=== PATIENT | male | born 1965 | race Caucasian/White ===

== ENCOUNTER 2020-02-19 07:44 | Outpatient (CLI) | payer OTHER, SELFPAY ==
--- NOTE | ~2020-02-19 | MR_ITS ---
EXAMINATION: MR brain/brain stem wo con DATE: 02/19/2020 08:41 INDICATION: Tremor TECHNIQUE: Magnetic resonance imaging (MRI) of the brain and brainstem was performed without intraven ous contrast. Sequences included sagittal and axial T1-weighted SE, axial diffusion-weighted FS SE, a xial T2*-weighted GRE, axial T2-weighted FLAIR, and axial T2-weighted FSE. Apparent diffusion coeffic ient (ADC) maps were created. COMPARISON: None. FINDINGS: There are no areas of restricted diffusion to suggest acute infarction. No intracranial hemorrhage or abnormal intracranial mass lesion. There are no intraparenchymal signal abnormalities seen on the ot her pulse sequences. The ventricles are symmetric and normal in size. There are no abnormal extra-axi al fluid collections. Flow voids are seen in the cerebral arteries on the T2-weighted sequences consi stent with their expected patency. Moderate mucosal thickening in the bilateral maxillary and ethmoid sinuses with change of prior bilateral ethmoidectomies. Visualized orbits and soft tissues are unrem arkable. Mild to moderate cervical spondylosis. IMPRESSION: 1. Normal brain. 2. Chronic sinus disease. Reviewed, dictated and finalized at location A.
== END 2020-02-19 07:45 | disposition home or self-care (01) ==
PROVIDERS: PCP Family Medicine; Visit Provider Psychiatry & Neurology Neurology
DX: J32.9 Chronic sinusitis, unspecified (principal)
CPT/HCPCS: 70551

== ENCOUNTER 2020-04-24 09:56 | Emergency (ER) | payer OTHER, SELFPAY ==
--- NOTE | 2020-04-24 10:03 | ED.GENADULT ---
HPI - General Adult General Chief complaint: Upper Respiratory Infection Stated complaint: Sinus infection Time Seen by Provider: 04/24/20 10:20 Source: patient Mode of arrival: ambulatory Limitations: no limitations History of Present Illness HPI narrative: 54-year-old male patient presents to the [facility] with complaints of cold symptoms for the past 3 weeks. Patient states he thought he had a sinus infection was put on an antibiotic by his primary doctor. Patient states he was feeling better while on the antibiotic and then as soon as he got off the antibiotics his symptoms started again. Patient states that he was then get again seen at [facility] and was put on a different antibiotic. Patient states he again felt better when he was on the antibiotic and then when he discontinued the antibiotic he again started having symptoms. Patient states he is having some facial pain, fatigue, nausea and states he feels poison . Denies any fevers. Denies any ear pain, runny nose, coughing. Patient does admit to a sore throat. Patient denies any chest pain, shortness of breath, abdominal pain vomiting or diarrhea. Patient states he has been taking [id number] decongestants for symptoms. Patient states he has not been tested for COVID-19. Related Data Home Medications Medication Instructions Recorded Confirmed Aspir-81 04/24/20 Flonase Allergy Relief 04/24/20 atorvastatin 04/24/20 loratadine mg 04/24/20 naproxen 04/24/20 sertraline mg 04/24/20 sildenafil (pulm.hypertension) 04/24/20 tamsulosin mg PO 04/24/20 Allergies Allergy/AdvReac Type Severity Reaction Status Date / Time azithromycin Allergy Unknown Verified 04/18/13 16:05 erythromycin base Allergy Unknown Verified 12/06/11 09:52 Review of Systems Review of Systems: Narrative: CONSTITUTIONAL: Denies fever, chills, or sweats. EYES: Denies visual changes, redness, or discharge. ENT: Denies rhinorrhea, congestion, positive sore throat, or otalgia. CARDIOVASCULAR: Denies chest pain, palpitations, or edema. RESPIRATORY: Denies cough or dyspnea. GASTROINTESTINAL: Denies abdominal pain, nausea, vomiting, or diarrhea. GENITOURINARY: Denies dysuria or hematuria. SKIN: Denies rash or itching. MUSCULOSKELETAL: Denies back pain, joint pain, or myalgia. NEUROLOGIC: Denies headache, numbness, or weakness. Positive fatigue PSYCHIATRIC: Denies anxiety or depression. [facility] Past Medical History Medical History Allergic rhinitis Anxiety GERD (gastroesophageal reflux disease) Mixed hyperlipidemia Onychomycosis Family History Family History Father Family history of kidney disease Family history of liver disease Patient's father is Mother Patient's mother is in good health, Onset Age: 72 Social History Social History Smoking status: Never smoker Alcohol intake: current Drinks per week: 3 Substance use: never Comments At the time of my signature I agree with nursing past medical history, surgical, social, and family history. There is no relevant family history pertinent to the presenting complaint. Exam Narrative: Exam Narrative: GENERAL: Well-appearing, well-nourished, and in no acute distress. HEAD: Normocephalic, atraumatic. Slight tenderness noted under maxillary sinuses on palpation EYES: PERRLA and EOMI. ENT: Nares clear, no rhinorrhea or epistaxis. Mucous membranes moist. Posterior pharynx with no erythema, tonsil enlargement, exudates or lesions present. Bilateral TMs are clear no erythema or foreign bodies in the canal. NECK: Supple. No lymphadenopathy CHEST: Clear to auscultation. No respiratory distress. HEART: Regular rate and rhythm. No murmur heard. Normal peripheral pulses. ABDOMEN: Soft, nontender, nondistended, normal active bowel sounds. EXTREMITIES:
[2020-04-24 10:06] VITALS: BP 108/84; PULSE 71; RESP 16; TEMP 37; O2SAT 97
== END 2020-04-24 10:37 | disposition home or self-care (01) ==
PROVIDERS: Emergency Provider Nurse Practitioner Family
DX: J06.9 Acute upper respiratory infection, unspecified (principal); Z20.828 Contact with and (suspected) exposure to other viral communicable diseases; F41.9 Anxiety disorder, unspecified; K21.9 Gastro-esophageal reflux disease without esophagitis; E78.2 Mixed hyperlipidemia
CPT/HCPCS: 99213; G0463

== ENCOUNTER 2020-08-18 04:14 | Emergency (ER) | payer OTHER, SELFPAY ==
--- NOTE | ~2020-08-18 | XR_ITS ---
EXAMINATION: XR abdomen/kub 1V INDICATION: Constipation TECHNIQUE: Supine views of the abdomen were obtained on 2 radiographs. COMPARISON: 07/04/2012 FINDINGS: There are no dilated loops of bowel. An expected volume of colonic stool is present. No rush e intraperitoneal gas is identified. Phleboliths are noted in the pelvis. There is mild bilateral hip osteoarthritis. IMPRESSION: 1. Nonspecific bowel gas pattern. Reviewed, dictated and finalized at location A. IFIED SURGICAL TECH/FIRST ASSISTANT
[2020-08-18 04:17] VITALS: BP 124/96; PULSE 78; RESP 16; TEMP 36.1; O2SAT 98
--- NOTE | 2020-08-18 04:53 | ED.GENADULT ---
HPI - General Adult General Chief complaint: Unspecified Stated complaint: severe constipation Time Seen by Provider: 08/18/20 04:42 History of Present Illness HPI narrative: 54 yo male w/ h/o depression, PTSD presents to the ED for constipation. He has not had a bowel movment in 4 days. Sometimes he tries but only a small amount of blood comes out. This is associated with bloating. He did vomit once a few days ago. No abdominal pain, fever Related Data Home Medications Medication Instructions Recorded Confirmed Aspir-81 04/24/20 Flonase Allergy Relief 04/24/20 atorvastatin 04/24/20 loratadine mg 04/24/20 naproxen 04/24/20 sertraline mg 04/24/20 sildenafil (pulm.hypertension) 04/24/20 tamsulosin mg PO 04/24/20 Allergies Allergy/AdvReac Type Severity Reaction Status Date / Time azithromycin Allergy Unknown Verified 04/18/13 16:05 erythromycin base Allergy Unknown Verified 12/06/11 09:52 Review of Systems Review of Systems: All systems reviewed & are unremarkable except as noted in HPI and below Constitutional: Constitutional: Denies fever(s) Cardiovascular: Cardiovascular: Denies chest pain Respiratory: Respiratory: Denies dyspnea Gastrointestinal: Gastrointestinal: Denies abdominal pain, Reports nausea and Reports vomiting Genitourinary: Genitourinary: Denies hematuria, Denies oliguria, Denies dysuria, Denies urinary frequency and Denies urinary hesitancy Neurologic: Denies weakness [facility] Past Medical History Medical History (Updated 08/19/20 @ 00:00 by Background Daemon) Allergic rhinitis Anxiety GERD (gastroesophageal reflux disease) Mixed hyperlipidemia Onychomycosis Family History Family History Father Family history of kidney disease Family history of liver disease Patient's father is Mother Patient's mother is in good health, Onset Age: 72 Social History Social History Smoking status: Never smoker Alcohol intake: current Drinks per week: 3 Substance use: never Exam Const: General: healthy appearing, no acute distress and alert Orientation/consciousness: patient oriented x3 HENMT: Head: normal to inspection Neck: Neck: normal visual inspection and no lymphadenopathy Chest: Chest palpation & inspection: no tenderness Resp: Effort & Inspection: normal respiratory effort Auscultation: clear to auscultation bilaterally, no rales, no rhonchi and no wheezes Cardio: Jugular venous distension: no JVD Rate: regular rate Rhythm: regular rhythm Heart sounds: no murmurs GI: Inspection: non-distended GI Palp: Yes Soft to palpation and No Tenderness to palpation present (GI) Skin: General skin exam: normal color Neuro: General: patient oriented x3 and moves all extremities Speech: normal speech Extrem: General: no edema Psych: Appearance: well kempt Affect: normal affect Course Vital Signs Vital signs: Vital Signs Temperature 36.1 C L 08/18/20 04:17 Pulse Rate 78 08/18/20 04:17 Respiratory Rate 16 08/18/20 04:17 Blood Pressure 124/96 H 08/18/20 04:17 Pulse Oximetry 98 08/18/20 04:17 Temperature 36.3 C L 08/18/20 06:43 Pulse Rate 78 08/18/20 06:43 Respiratory Rate 16 08/18/20 06:43 Blood Pressure 121/79 08/18/20 06:43 Pulse Oximetry 98 08/18/20 06:43 Medical Decision Making Differential Diagnosis Differential Diagnosis: SBO, constipation, diverticulitis, other Medical Records Medical records reviewed: Yes I reviewed the patient's medical records. Vital Signs Vital Signs: Vital Signs Temperature 36.1 C L 08/18/20 04:17 Pulse Rate 78 08/18/20 04:17 Respiratory Rate 16 08/18/20 04:17 Blood Pressure 124/96 H 08/18/20 04:17 Pulse Oximetry 98 08/18/20 04:17 Temperature 36.3 C L 08/18/20 06:43 Pulse Rate 78 08/18/20 06:43 Respiratory Rate 16 08/18/20 06:43
[2020-08-18 05:06] LABS: Basophils Absolute Auto 0.1 K/mm3 (0.0-0.1); Basophils Percent Auto 1.1 % (0.2-1.2); Eosinophils Absolute Auto 0.3 K/mm3 (0-0.3); Eosinophils Percent Auto 3.2 % (0-4.4); Hemoglobin 15.2 g/dL (14.0-18.0); Immature Granulocyte Absolute 0.03 K/mm3 (0.00-0.031); Immature Granulocyte Percent A 0.4 % (0-0.5); Lymphocytes Absolute Auto 2.03 K/mm3 (0.9-3.2); Lymphocytes Percent Auto 24.9 % (18.3-44.2); Mean Corpuscular HGB Conc 34.5 g/dl (32-36); Mean Corpuscular Hemoglobin 29.7 pg (26-34); Mean Corpuscular Volume 86.1 fl (80-100); Mean Platelet Volume 10.9 fl (7.4-10.4); Monocytes Absolute Auto 0.9 K/mm3 (0.1-0.6); Monocytes Percent Auto 10.5 % (2.6-8.5); Neutrophils Absolute Auto 4.9 K/mm3 (1.3-6.7); Neutrophils Percent Auto 59.9 % (45.5-73.1); Platelet Count Result 208 k/mm3 (150-375); Red Blood Count 5.11 M/mm3 (4.6-6.20); Red Cell Distribution Width 12.7 % (11.5-14.5); White Blood Count 8.2 K/mm3 (4.5-10.0)
[2020-08-18 05:21] LABS: Alanine Aminotransferase 29 U/L (4-50); Albumin Level 4.3 g/dL (3.5-5.1); Alkaline Phosphatase 65 U/L (38-126); Anion Gap 8 mmol/L (8-16); Aspartate Amino Transferase 27 U/L (17-59); Bilirubin,Total 0.9 mg/dL (0.2-1.3); Blood Urea Nitrogen 23 mg/dL (9-20); Calcium 9.6 mg/dL (8.4-10.2); Carbon Dioxide 29 mmol/L (22-30); Chloride 103 mmol/L (98-107); Estimated CRCL calculation 90 ml/min; Estimated Glomerular Filt Rate > 60; Glucose 103 mg/dL (75-110); Potassium 3.9 mmol/L (3.4-5.0); Sodium 140 mmol/L (137-145)
[2020-08-18] MEDS: MAGNESIUM CITRATE 300 ML BTL PO (06:40)
[2020-08-18 06:43] VITALS: BP 121/79; PULSE 78; RESP 16; TEMP 36.3; O2SAT 98
== END 2020-08-18 06:44 | disposition home or self-care (01) ==
PROVIDERS: Emergency Provider Emergency Medicine
DX: K59.00 Constipation, unspecified (principal); F32.9 Major depressive disorder, single episode, unspecified; F43.10 Post-traumatic stress disorder, unspecified; F41.9 Anxiety disorder, unspecified; K21.9 Gastro-esophageal reflux disease without esophagitis; E78.2 Mixed hyperlipidemia
CPT/HCPCS: 36415; 74018; 80053; 85025; 99283; A9270

== ENCOUNTER 2020-09-08 03:31 | Emergency (ER) | payer OTHER, SELFPAY ==
[2020-09-08] VITALS (10 sets, daily range): BP systolic 95–130; BP diastolic 72–95; PULSE 56–67; RESP 17–25; TEMP 36.4–36.6; O2SAT 96–100
--- NOTE | ~2020-09-08 | CT_ITS ---
EXAMINATION: CT abdomen pelvis w con DATE: 09/08/2020 06:08 INDICATION: Abdomen pain. TECHNIQUE: Computed tomography (CT) of the abdomen and pelvis was performed with 100 cc Omnipaque 350 intravenous contrast. The dose-length product was 1032.75 mGy-cm. Automated exposure control and ite rative reconstruction technique were employed. Automated exposure control and iterative reconstructio n technique were employed. COMPARISON: CT dated 09/09/2013. FINDINGS: Lung bases are unremarkable. Heart size normal. No significant pleural or pericardial effus ion. Small subcentimeter hypodensities of the liver, likely benign cysts. The spleen, pancreas, adrenal gl ands and kidneys are unremarkable. Nonobstructive bowel gas pattern. Normal appendix. No lymphadenopa thy. No free air or free fluid. Mild hepatic steatosis ptosis. There is atherosclerosis. Mild lumbar spondylosis. No acute osseous abnormality. IMPRESSION: 1. No acute abdominal abnormality. Reviewed, dictated and finalized at location A. NG AND QUARRYING MACHINERY REPAIRER
--- NOTE | ~2020-09-08 | XR_ITS ---
EXAMINATION: XR chest 1V portable 09/08/2020 04:44 INDICATION: Cough and shortness of breath PROCEDURE: AP portable chest COMPARISON: Comparison to multiple prior studies sequentially, with oldest reviewed study dated 02/25. FINDINGS: The lungs are clear. The cardiomediastinal silhouette is within normal limits. There are no pleural effusions. There is no pneumothorax suspected. IMPRESSION: 1: NO ACUTE CARDIOPULMONARY DISEASE. Reviewed, dictated and finalized at location A. PER SORTER
--- NOTE | 2020-09-08 03:59 | ECG_ITS ---
Measurements Intervals [place] Rate: 53 P: 40 NE: 234 QRS: 42 QRSD: 98 T: 37 QT: 404 QTc: 382 Interpretive Statements SINUS BRADYCARDIA WITH FIRST DEGREE AV BLOCK ABNORMAL ECG Electronically Signed On 09-08-2020 7:27:12 VIDEO GAME TESTER by Francisco Hylton D.O.
--- NOTE | 2020-09-08 04:04 | ED.GENADULT ---
HPI - General Adult General Chief complaint: Upper Respiratory Infection Stated complaint: shortness of breath Time Seen by Provider: 09/08/20 03:37 Source: RN notes reviewed History of Present Illness HPI narrative: Patient presents emergency department from home for shortness of breath. States that symptoms have been progressively worsening over the past 2 weeks states is associated with a nonproductive cough. He denies any fevers or chills chest pain abdominal pain nausea vomiting or other symptoms. States he does feel bloated in the abdomen Related Data Home Medications Medication Instructions Recorded Confirmed Aspir-81 04/24/20 Flonase Allergy Relief 04/24/20 atorvastatin 04/24/20 loratadine mg 04/24/20 naproxen 04/24/20 sertraline mg 04/24/20 sildenafil (pulm.hypertension) 04/24/20 tamsulosin mg PO 04/24/20 Allergies Allergy/AdvReac Type Severity Reaction Status Date / Time azithromycin Allergy Intermediate Headache Verified 09/08/20 03:33 erythromycin base Allergy Intermediate Headache Verified 09/08/20 03:33 Review of Systems Review of Systems: Narrative: Gen.: Denies fevers or chills Eyes: Denies eye pain or visual change ENT: Denies congestion Respiratory: See HPI CV: Denies chest pain or palpitations GI: Denies abdominal pain nausea, emesis or diarrhea denies burning, urgency, frequency or hematuria Musculoskeletal: Denies back pain or muscle pain Neuro: Denies numbness, tingling, weakness or focal weakness Skin: Denies rash Except as documented, all other systems reviewed and negative [facility] Past Medical History Medical History (Updated 09/08/20 @ 06:44 by Fran Pedroza DO) Allergic rhinitis Anxiety GERD (gastroesophageal reflux disease) Mixed hyperlipidemia Onychomycosis Family History Family History Father Family history of kidney disease Family history of liver disease Patient's father is Mother Patient's mother is in good health, Onset Age: 72 Social History Social History Smoking status: Never smoker Alcohol intake: current Drinks per week: 3 Substance use: never Exam Narrative: Exam Narrative: APPEARANCE: No acute distress, nontoxic, resting in bed EYES: EOMI HEENT: Normocephalic, atraumatic, OMM RESPIRATORY: No respiratory distress Clear to auscultation bilaterally with no rhonchi wheezing or rales. CARDIOVASCULAR: Regular rate and rhythm without murmurs rubs or gallops. ABDOMINAL: Soft, nontender, nondistended, no rebound or guarding MUSCULOSKELETAl: Moves all extremities. No clubbing, cyanosis or edema. NEURO: Awake and alert. Following commands, speech normal, no focal deficits SKIN:: Warm, dry. No rashes lesions or abrasions PSYCHIATRIC: Normal affect/mood, Course Course Emergency Course: Discussed with patient results of workup and diagnosis. Discussed need for follow-up with primary care, proper use of medication, and reasons to return to the emergency department. Patient understands and agrees to current treatment plan Vital Signs Vital signs: Vital Signs Temperature 97.9 F 09/08/20 03:37 Pulse Rate 59 L 09/08/20 03:37 Respiratory Rate 18 09/08/20 03:37 Blood Pressure 95/72 L 09/08/20 03:37 Pulse Oximetry 100 09/08/20 03:37 Temperature 97.5 F L 09/08/20 05:20 Pulse Rate 65 09/08/20 05:20 Respiratory Rate 17 09/08/20 05:20 Blood Pressure 102/75 09/08/20 05:20 Pulse Oximetry 100 09/08/20 05:20 Medical Decision Making Vital Signs Vital Signs: Vital Signs Temperature 97.9 F 09/08/20 03:37 Pulse Rate 59 L 09/08/20 03:37 Respiratory Rate 18 09/08/20 03:37 Blood Pressure 95/72 L 09/08/20 03:37 Pulse Oximetry 100 09/08/20 03:37 Temperature 97.5 F L 09/08/20 05:20 Pulse Rate 65 09/08/20 05:20 Respiratory Rate 17 09/08/20 05:20 Blood Pressure 102/
[2020-09-08] MEDS: SODIUM CHLORIDE 0.9% IV 1,000 ML 999 ML IV CONT (04:14)
[2020-09-08 04:22] LABS: Basophils Absolute Auto 0.1 K/mm3 (0.0-0.1); Basophils Percent Auto 1.4 % (0.2-1.2); Eosinophils Absolute Auto 0.3 K/mm3 (0-0.3); Eosinophils Percent Auto 4.4 % (0-4.4); Hematocrit 42.8 % (42.0-52.0); Immature Granulocyte Absolute 0.02 K/mm3 (0.00-0.031); Immature Granulocyte Percent A 0.3 % (0-0.5); Lymphocytes Absolute Auto 2.21 K/mm3 (0.9-3.2); Lymphocytes Percent Auto 30.5 % (18.3-44.2); Mean Corpuscular Hemoglobin 29.4 pg (26-34); Mean Corpuscular Volume 83.9 fl (80-100); Mean Platelet Volume 11.7 fl (7.4-10.4); Monocytes Absolute Auto 0.8 K/mm3 (0.1-0.6); Monocytes Percent Auto 10.8 % (2.6-8.5); Neutrophils Absolute Auto 3.8 K/mm3 (1.3-6.7); Neutrophils Percent Auto 52.6 % (45.5-73.1); Platelet Count Result 220 k/mm3 (150-375); Red Cell Distribution Width 12.7 % (11.5-14.5); White Blood Count 7.2 K/mm3 (4.5-10.0)
[2020-09-08 04:32] LABS: Prothrombin Time 13.8 Seconds (11.1-14.7)
[2020-09-08 04:33] LABS: Partial Thromboplastin Time 30.7 SECONDS (22.3-36.8)
[2020-09-08 04:36] LABS: Alanine Aminotransferase 21 U/L (4-50); Albumin Level 4.2 g/dL (3.5-5.1); Alkaline Phosphatase 53 U/L (38-126); Anion Gap 9 mmol/L (8-16); Aspartate Amino Transferase 23 U/L (17-59); Bilirubin,Total 0.5 mg/dL (0.2-1.3); Blood Urea Nitrogen 17 mg/dL (9-20); Calcium 9.2 mg/dL (8.4-10.2); Carbon Dioxide 27 mmol/L (22-30); Chloride 104 mmol/L (98-107); Estimated CRCL calculation 89 ml/min; Estimated Glomerular Filt Rate > 60; Glucose 100 mg/dL (75-110); Potassium 3.8 mmol/L (3.4-5.0); Sodium 140 mmol/L (137-145)
[2020-09-08 04:40] LABS: D Dimer 0.27 ug/mL (<0.48)
[2020-09-08 04:48] LABS: NT Pro B Type Natriuretic Pept 57 PG/ML (5-100); Troponin I < 0.012 ng/mL (0.000-0.034)
[2020-09-08] MEDS: ALBUTEROL SULFATE (*SP) AEROSOL 1 PUFF 2 PUFF INHALATION (05:07)
[2020-09-08 16:41] LABS: SARS-CoV-2 RNA PCR Negative
== END 2020-09-08 07:26 | disposition home or self-care (01) ==
PROVIDERS: Emergency Provider Emergency Medicine
DX: R06.02 Shortness of breath (principal); Z20.828 Contact with and (suspected) exposure to other viral communicable diseases; F41.9 Anxiety disorder, unspecified; K21.9 Gastro-esophageal reflux disease without esophagitis; E78.2 Mixed hyperlipidemia; R00.1 Bradycardia, unspecified; I44.0 Atrioventricular block, first degree; Z79.82 Long term (current) use of aspirin
CPT/HCPCS: 36415; 71045; 74177; 80053; 83880; 84484; 85025; 85380; 85610; 85730; 87635; 93005; 94640; 96360; 99284; A9270; C9803; J7030; Q9967; U0003

== ENCOUNTER 2021-07-21 19:36 | Emergency (ER) | payer OTHER, SELFPAY ==
--- NOTE | ~2021-07-21 | XR_ITS ---
EXAMINATION: XR chest 2V EXAM DATE: 07/21/2021 20:00 INDICATION: Shortness of breath, N/V, abdominal pain for 2 days. TECHNIQUE: Frontal and lateral projections of the chest obtained and reviewed. Comparison is made to prior examination from 09/08/2020. FINDINGS: The lungs are clear. There are no pleural effusions. The cardiomediastinal silhouette is within normal limits. There is no pneumothorax suspected. The bones and soft tissues are unremarkab le. IMPRESSION: No acute cardiopulmonary findings. Reviewed, dictated and finalized at location A.
[2021-07-21 19:41] VITALS: BP 130/90; PULSE 85; RESP 14; TEMP 37.1; O2SAT 97
--- NOTE | 2021-07-21 19:44 | ECG_ITS ---
Measurements Intervals [place] Rate: 78 P: 61 IA: 203 QRS: 34 QRSD: 105 T: 44 QT: 370 QTc: 423 Interpretive Statements SINUS RHYTHM BORDERLINE AV CONDUCTION DELAY MINIMAL Q WAVES- ANTEROLAT/INF LEADS BASELINE ARTIFACT- I, III, AVR, AVL BORDERLINE ECG Electronically Signed On 07-22-2021 6:15:09 CDT by Francisco Hylton D.O.
[2021-07-21 19:58] LABS: Basophils Absolute Auto 0.1 K/mm3 (0.0-0.1); Basophils Percent Auto 1.3 % (0.2-1.2); Eosinophils Absolute Auto 0.3 K/mm3 (0-0.3); Eosinophils Percent Auto 2.8 % (0-4.4); Hemoglobin 16.8 g/dL (14.0-18.0); Immature Granulocyte Absolute 0.04 K/mm3 (0.00-0.031); Immature Granulocyte Percent A 0.4 % (0-0.5); Lymphocytes Percent Auto 25.5 % (18.3-44.2); Mean Corpuscular Hemoglobin 30.2 pg (26-34); Mean Corpuscular Volume 86.3 fl (80-100); Mean Platelet Volume 10.9 fl (7.4-10.4); Monocytes Absolute Auto 0.8 K/mm3 (0.1-0.6); Monocytes Percent Auto 8.5 % (2.6-8.5); Neutrophils Percent Auto 61.5 % (45.5-73.1); Platelet Count Result 240 k/mm3 (150-375); Red Blood Count 5.56 M/mm3 (4.6-6.20); Red Cell Distribution Width 12.6 % (11.5-14.5); White Blood Count 9.8 K/mm3 (4.5-10.0)
[2021-07-21 20:08] LABS: Anion Gap 10 mmol/L (8-16); Blood Urea Nitrogen 13 mg/dL (9-20); Calcium 9.7 mg/dL (8.4-10.2); Carbon Dioxide 25 mmol/L (22-30); Chloride 105 mmol/L (98-107); Estimated CRCL calculation 89 ml/min; Estimated Glomerular Filt Rate > 60; Glucose 101 mg/dL (65-110); Lipase 85 U/L (23-300); Potassium 4.2 mmol/L (3.4-5.0); Sodium 140 mmol/L (137-145)
[2021-07-21 20:20] LABS: Add Urine Microscopic? NO; Appearance Urine Clear (Clear); Bilirubin Urine Negative (Negative); Blood Urine Negative (Negative); Color Urine Yellow (Yellow); Glucose Urine UA Negative (Negative); Ketones Urine Negative (Negative); Leukocyte Esterase Ur Negative LEU/UL (Negative); Nitrate Urine Negative (Negative); Protein Urine Negative (Negative); Specific Grav Ur 1.012 (1.001-1.035); Urobilinogen Urine Negative mg/dL (<2.0)
[2021-07-21] MEDS: SODIUM CHLORIDE 0.9% IV 1,000 ML 999 ML IV CONT (21:31)
[2021-07-21] MEDS: ONDANSETRON INJ 4 MG/2 ML VIAL IV PUSH (21:32)
--- NOTE | 2021-07-21 22:01 | ED.NAVMDI ---
HPI - Nausea/Vomiting/Diarrhea General Chief complaint: Nausea/Vomiting/Diarrhea Stated complaint: withdrawal symptoms Time Seen by Provider: 07/21/21 20:56 History of Present Illness HPI Narrative: Patient presents with nausea vomiting and soft stools. Patient reports his symptoms started approximately 5 days ago that was related to his medication which she discontinued. His nausea and vomiting worsen so he came to the ER for evaluation. Patient presents at soft stools however his stools are improving. Denies any focal abdominal pain denies lightheadedness or fevers denies any known sick contacts, recent antibiotics. Patient is concerned symptoms may related to discontinuing his medication but Related Data Home Medications Medication Instructions Recorded Confirmed Aspir-81 04/24/20 Flonase Allergy Relief 04/24/20 atorvastatin 04/24/20 loratadine mg 04/24/20 naproxen 04/24/20 sertraline mg 04/24/20 sildenafil (pulm.hypertension) 04/24/20 tamsulosin mg PO 04/24/20 Allergies Allergy/AdvReac Type Severity Reaction Status Date / Time azithromycin Allergy Intermediate Headache Verified 09/08/20 03:33 erythromycin base Allergy Intermediate Headache Verified 09/08/20 03:33 Review of Systems Review of Systems: CONSTITUTIONAL: Denies fever, chills, or sweats. EYES: Denies visual changes, redness, or discharge. ENT: Denies rhinorrhea, congestion, sore throat, or otalgia. CARDIOVASCULAR: Denies chest pain, palpitations, or edema. RESPIRATORY: Denies cough or dyspnea. GASTROINTESTINAL: Denies abdominal pain. GENITOURINARY: Denies dysuria or hematuria. SKIN: Denies rash or itching. MUSCULOSKELETAL: Denies back pain, joint pain, or myalgia. NEUROLOGIC: Denies headache, numbness, dizziness, or weakness. PSYCHIATRIC: Denies anxiety or depression. All systems reviewed & are unremarkable except as noted in HPI and below PMFSH Past Medical History Medical History (Updated 07/22/21 @ 00:00 by Hank Jacobsen) Allergic rhinitis Anxiety GERD (gastroesophageal reflux disease) Mixed hyperlipidemia Onychomycosis Family History Family History Father Family history of kidney disease Family history of liver disease Patient's father is Mother Patient's mother is in good health, Onset Age: 72 Social History Social History Smoking status: Never smoker Alcohol intake: current Drinks per week: 3 Substance use: never Exam Narrative: GENERAL: Well-appearing, well-nourished, and in no acute distress. HEAD: Normocephalic, atraumatic. EYES: PERRLA and EOMI. ENT: Nares clear, no rhinorrhea or epistaxis. Mucous membranes moist. NECK: Supple. No masses. No JVD CHEST: Clear to auscultation. No respiratory distress. No wheezes rales or rhonchi HEART: Regular rate and rhythm. No murmur heard. Normal peripheral pulses. ABDOMEN: Soft, nontender, nondistended, normal active bowel sounds. EXTREMITIES: Normal range of motion. No edema. SKIN: Warm, dry, no rash. NEURO: No focal deficits. Alert and oriented x3. PSYCH: Normal mood and affect. Course Vital Signs Vital signs: Vital Signs Temperature 37.1 C 07/21/21 19:41 Pulse Rate 85 07/21/21 19:41 Respiratory Rate 14 07/21/21 19:41 Blood Pressure 130/90 07/21/21 19:41 Pulse Oximetry 97 07/21/21 19:41 Temperature 37.1 C 07/21/21 19:41 Pulse Rate 78 07/21/21 22:40 Respiratory Rate 14 07/21/21 22:40 Blood Pressure 130/74 07/21/21 22:40 Pulse Oximetry 97 07/21/21 22:40 MDM - Nausea/Vomiting/Diarrhea MDM Narrative Medical decision making narrative: H&P as above, vss, pt looks clinically well, exam with nonacute abdomen, labs clinically unremarkable,additional labs/img considered, symptomatic relief available as needed, on reevaluation pt continues to looks clinically well. Suspect viral process, dns sm
[2021-07-21 22:40] VITALS: BP 130/74; PULSE 78; RESP 14; O2SAT 97
== END 2021-07-21 22:40 | disposition home or self-care (01) ==
PROVIDERS: Emergency Medicine; Emergency Provider Emergency Medicine
DX: R11.2 Nausea with vomiting, unspecified (principal); R19.7 Diarrhea, unspecified; Z79.82 Long term (current) use of aspirin; Z79.1 Long term (current) use of non-steroidal anti-inflammatories (NSAID)
CPT/HCPCS: 36415; 71046; 80048; 81003; 83690; 85025; 93005; 96361; 96374; 99284; J2405; J7030

== ENCOUNTER 2021-11-19 11:37 | Emergency (ER) | payer OTHER, SELFPAY ==
--- NOTE | ~2021-11-19 | XR_ITS ---
EXAMINATION: XR hand RT 2V DATE: 11/19/2021 11:59 INDICATION: Right hand swelling and erythema. TECHNIQUE: 2 views of right hand were obtained. COMPARISON: None. FINDINGS: Bone alignment is normal. No fracture. Joint spaces are well maintained. IMPRESSION: 1. Normal right hand. Reviewed, dictated and finalized at location E. ORATE LAW SPECIALIST IMPRESSION: 1. Normal right hand.
[2021-11-19 11:40] VITALS: BP 128/81; PULSE 90; RESP 18; TEMP 36.3; O2SAT 95
--- NOTE | 2021-11-19 11:53 | ED.EXTPRO ---
HPI - Extremity Problem General Chief complaint: Extremity Problem,Nontraumatic Stated complaint: Hand pain Time Seen by Provider: 11/19/21 11:44 Source: patient History of Present Illness HPI Narrative: Patient presents with pain to his right hand. Patient ports he had symptoms for the past 3 days getting progressively worse. Reports his pain is achy, constant, worse with trying to use his hand, no radiation. Associated with redness swelling and warmth. Denies any trauma denies any fevers denies any focal numbness or weakness. Related Data Home Medications Medication Instructions Recorded Confirmed Aspir-81 04/24/20 Flonase Allergy Relief 04/24/20 atorvastatin 04/24/20 loratadine mg 04/24/20 naproxen 04/24/20 sertraline mg 04/24/20 sildenafil (pulm.hypertension) 04/24/20 tamsulosin mg PO 04/24/20 Allergies Allergy/AdvReac Type Severity Reaction Status Date / Time azithromycin Allergy Intermediate Headache Verified 11/19/21 11:42 erythromycin base Allergy Intermediate Headache Verified 11/19/21 11:42 Review of Systems Review of Systems: CONSTITUTIONAL: Denies fever, chills, or sweats. EYES: Denies visual changes, redness, or discharge. ENT: Denies rhinorrhea, congestion, sore throat, or otalgia. CARDIOVASCULAR: Denies chest pain, palpitations, or edema. RESPIRATORY: Denies cough or dyspnea. GASTROINTESTINAL: Denies abdominal pain, nausea, vomiting, or diarrhea. GENITOURINARY: Denies dysuria or hematuria. SKIN: Denies rash or itching. MUSCULOSKELETAL: Denies back pain, joint pain, or myalgia. NEUROLOGIC: Denies headache, numbness, dizziness, or weakness. PSYCHIATRIC: Denies anxiety or depression. All systems reviewed & are unremarkable except as noted in HPI and below PMFSH Past Medical History Medical History (Updated 11/19/21 @ 11:56 by Christiano Gutierrez MD) Allergic rhinitis Anxiety GERD (gastroesophageal reflux disease) Mixed hyperlipidemia Onychomycosis Family History Family History Father Family history of kidney disease Family history of liver disease Patient's father is Mother Patient's mother is in good health, Onset Age: 72 Social History Social History Smoking status: Never smoker Alcohol intake: current Drinks per week: 3 Substance use: never Exam Narrative: GENERAL: Well-appearing, well-nourished, and in no acute distress. HEAD: Normocephalic, atraumatic. EYES: PERRLA and EOMI. ENT: Nares clear, no rhinorrhea or epistaxis. Mucous membranes moist. NECK: Supple. No masses. No JVD EXTREMITIES: Mild erythema warmth and edema most noted on the hyperthenar eminence of the hand no focal fluid collections no obvious open or draining wounds SKIN: Warm, dry, no rash. NEURO: No focal deficits. Alert and oriented x3. PSYCH: Normal mood and affect. Course Reevaluation(s) Reevaluation #1: Results reviewed with patient. Patient comfortable outpatient plan. Date: 11/19/21 Time: 12:17 Vital Signs Vital signs: Vital Signs Temperature 36.3 C L 11/19/21 11:40 Pulse Rate 90 11/19/21 11:40 Respiratory Rate 18 11/19/21 11:40 Blood Pressure 128/81 11/19/21 11:40 Pulse Oximetry 95 11/19/21 11:40 Temperature 36.3 C L 11/19/21 11:40 Pulse Rate 90 11/19/21 11:40 Respiratory Rate 18 11/19/21 11:40 Blood Pressure 128/81 11/19/21 11:40 Pulse Oximetry 95 11/19/21 11:40 MDM - Extremity (Nontraumatic) MDM Narrative Medical decision making narrative: H&P as above, vss, pt looks clinically well, exam warmth erythema and edema to the hand no tenderness with palpation on the flexor tendons of the digits no Knievel signs, imaging clinically unremarkable, additional labs/img considered, symptomatic relief available as needed, on reevaluation pt continues to looks clinically well. Suspect developing cellulitis, dns abscess, flexor ten
== END 2021-11-19 12:25 | disposition home or self-care (01) ==
LOC: ANHED 12:06
PROVIDERS: Emergency Provider Emergency Medicine
DX: L03.113 Cellulitis of right upper limb (principal); K21.9 Gastro-esophageal reflux disease without esophagitis; E78.2 Mixed hyperlipidemia; Z79.82 Long term (current) use of aspirin
CPT/HCPCS: 73120; 99283

== ENCOUNTER 2023-09-06 07:56 | Emergency (ER) | payer OTHER, SELFPAY ==
[2023-09-06] VITALS (12 sets, daily range): BP systolic 99–115; BP diastolic 75–85; PULSE 65–73; RESP 15–21; TEMP 36.6; O2SAT 93–99
--- NOTE | ~2023-09-06 | XR_ITS ---
EXAMINATION: XR chest 2V DATE: 09/06/2023 08:20 INDICATION: Shortness of breath. TECHNIQUE: Frontal and lateral views of the chest were obtained. COMPARISON: Chest 2 views 07/21/21, CT abdomen and pelvis 09/08/2020 FINDINGS: There is stable mild scarring at left lung apex. There is no pneumonia, pleural effusion, o r pneumothorax. The heart size is normal. IMPRESSION: 1. Stable mild scarring at left lung apex. Reviewed, dictated and finalized at location [facility]
--- NOTE | 2023-09-06 08:25 | ED.GENADULT ---
HPI - General Adult General Chief complaint: Upper Respiratory Infection Stated complaint: COUGH,CONGESTION RECENT PNA Time Seen by Provider: 09/06/23 08:01 History of Present Illness HPI narrative: 58-year-old male presenting to the ED for evaluation of persistent cough and congestion. Patient was recently on a course of antibiotics and completed the antibiotics. Patient presents to the ED complaining of persistent cough and shortness of breath. Related Data Home Medications Medication Instructions Recorded Confirmed Aspir-81 04/24/20 Flonase Allergy Relief 04/24/20 atorvastatin 04/24/20 loratadine 10 mg tablet mg 04/24/20 naproxen 500 mg tablet 04/24/20 sertraline 100 mg tablet mg 04/24/20 sildenafil (pulm.hypertension) 20 04/24/20 mg tablet tamsulosin 0.4 mg capsule mg PO 04/24/20 Allergies Allergy/AdvReac Type Severity Reaction Status Date / Time azithromycin Allergy Intermediate Headache Verified 09/06/23 08:02 erythromycin base Allergy Intermediate Headache Verified 09/06/23 08:02 Review of Systems Review of Systems: All systems reviewed & are unremarkable except as noted in HPI and below PMFSH Past Medical History Medical History (Updated 09/06/23 @ 09:51 by Man Saldaña MD) Allergic rhinitis Anxiety GERD (gastroesophageal reflux disease) Mixed hyperlipidemia Onychomycosis Family History Family History Father Family history of kidney disease Family history of liver disease Patient's father is Mother Patient's mother is in good health, Onset Age: 72 Social History Social History Smoking status: Never smoker Alcohol intake: current Drinks per week: 3 Substance use: never Exam Narrative: APPEARANCE: Well appearing, no pain, no distress, well-nourished. HEAD: normocephalic, atraumatic. EYES: PERRLA/EOMI, conjunctivae clear. NOSE: Normal no drainage EARS:TMS clear with good light reflex. THROAT: Pharynx clear, no exudate. NECK: Supple. No adenopathy, no masses. RESPIRATORY: Airway patent, respirations nonlabored. Clear to auscultation bilaterally, no rales, rhonchi, wheezing. CARDIOVASCULAR: Regular rate and rhythm without murmurs rubs or gallops. ABDOMINAL: Soft, nontender, nondistended, normal bowel sounds MUSCULOSKELETAL: Moves all extremities. Strength/ROM intact, No edema, No calf tenderness. NEURO: Alert. Cranial nerves II through XII intact. Grossly intact SKIN: Warm, dry. Normal Color Course Course Emergency Course: 58-year-old male presenting to the ED for evaluation of persistent cough. Patient is afebrile with no leukocytosis and a stable hemoglobin. No abnormalities on his CMP and a normal BNP. Patient was negative for influenza RSV and for COVID. Chest x-ray showed no acute cardiopulmonary abnormality. No evidence of pneumonia or pneumothorax. Patient had no significant wheezing on exam but did feel improved with treatment. Patient had been antibiotics, steroids and an inhaler and Tessalon Perles. Patient will have his Tessalon Perles and albuterol prescription refill. Patient was encouraged to have close follow-up with his primary care physician. Patient was also educated on reasons to return To the emergency department Vital Signs Vital signs: Vital Signs Temperature 98 F 09/06/23 07:57 Pulse Rate 70 09/06/23 07:57 Respiratory Rate 20 09/06/23 07:57 Blood Pressure 115/75 09/06/23 07:57 Pulse Oximetry 98 09/06/23 07:57 Oxygen Delivery Room Air 09/06/23 07:57 Temperature 98 F 09/06/23 07:57 Pulse Rate 65 09/06/23 09:45 Respiratory Rate 15 09/06/23 09:45 Blood Pressure 114/85 09/06/23 09:45 Pulse Oximetry 96 09/06/23 09:45 Oxygen Delivery Room Air 09/06/23 07:57 Medical Decision Making Differential Diagnosis Differential Diagnosis: pneumonia, pleur
[2023-09-06 08:39] LABS: Basophils Absolute Auto 0.2 K/mm3 (0.0-0.1); Basophils Percent Auto 1.6 % (0.2-1.2); Eosinophils Absolute Auto 0.4 K/mm3 (0-0.3); Eosinophils Percent Auto 3.9 % (0-4.4); Hematocrit 44.3 % (42.0-52.0); Hemoglobin 14.9 g/dL (14.0-18.0); Immature Granulocyte Absolute 0.28 K/mm3 (0.00-0.031); Immature Granulocyte Percent A 2.7 % (0-0.5); Lymphocytes Absolute Auto 3.24 K/mm3 (0.9-3.2); Lymphocytes Percent Auto 31.4 % (18.3-44.2); Mean Corpuscular HGB Conc 33.6 g/dl (32-36); Mean Corpuscular Hemoglobin 29.8 pg (26-34); Mean Corpuscular Volume 88.6 fl (80-100); Mean Platelet Volume 10.6 fl (7.4-10.4); Monocytes Percent Auto 9.7 % (2.6-8.5); Neutrophils Absolute Auto 5.2 K/mm3 (1.3-6.7); Neutrophils Percent Auto 50.7 % (45.5-73.1); Platelet Count Result 234 k/mm3 (150-375); Red Cell Distribution Width 13.2 % (11.5-14.5); White Blood Count 10.3 K/mm3 (4.5-10.0)
[2023-09-06] MEDS: ALBUTEROL SULFATE NEB 2.5 MG/3 ML INH INHALATION (08:43)
[2023-09-06 08:50] LABS: Alanine Aminotransferase 29 U/L (6-50); Albumin Level 3.7 g/dL (3.5-5.1); Alkaline Phosphatase 45 U/L (38-126); Anion Gap 11 mmol/L (8-16); Aspartate Amino Transferase 21 U/L (17-59); Bilirubin,Total 0.6 mg/dL (0.2-1.3); Blood Urea Nitrogen 22 mg/dL (9-20); Calcium 8.6 mg/dL (8.4-10.2); Carbon Dioxide 22 mmol/L (22-30); Chloride 103 mmol/L (98-107); Estimated CRCL calculation 96 ml/min; Estimated Glomerular Filt Rate > 60; Glucose 67 mg/dL (65-110); Sodium 136 mmol/L (137-145)
[2023-09-06 08:59] LABS: NT Pro B Type Natriuretic Pept < 20 pg/mL (19.9-100)
[2023-09-06 09:13] LABS: Influenza A QL RT-PCR Negative (Negative); Influenza B QL RT-PCR Negative (Negative); RSV RNA, RT-PCR Negative (Negative); SARS-CoV-2 RNA PCR Negative (Negative)
== END 2023-09-06 10:11 | disposition home or self-care (01) ==
PROVIDERS: Emergency Provider Emergency Medicine
DX: R05.9 Cough, unspecified (principal); F41.9 Anxiety disorder, unspecified; K21.9 Gastro-esophageal reflux disease without esophagitis; E78.5 Hyperlipidemia, unspecified; R06.02 Shortness of breath
CPT/HCPCS: 36415; 71046; 80053; 83880; 85025; 87637; 99283

== ENCOUNTER 2025-09-05 12:30 | Outpatient (RCR) | payer OTHER, SELFPAY | END 2025-09-16 11:36 | disposition home or self-care (01) | LOC: ANHCPREHAB 12:30 | PROVIDERS: PCP Family Medicine | DX: Z51.89 Encounter for other specified aftercare (principal); Z95.1 Presence of aortocoronary bypass graft; Z98.61 Coronary angioplasty status | CPT/HCPCS: 93798 ==